=== PATIENT | female | born 1995 | race Caucasian/White ===

== ENCOUNTER 2020-03-21 11:14 | Emergency (ER) | payer SELFPAY ==
[2020-03-21 11:33] VITALS: BP 126/81
--- NOTE | 2020-03-21 12:45 | ER Document Report ---
ED ENT - General Chief Complaint: Sore Throat Stated Complaint: SORE THROAT Time Seen by Provider: 03/21/20 12:21 Notes: CHIEF COMPLAINT: Sore throat for 1 day HPI: 25-year-old female presenting with sore throat and painful swallowing for 1 day. No voice change. No fever. Exposed to someone at work who had a positive strep test last week. Denies other complaints ROS: See HPI - all other systems were reviewed and are otherwise negative Constitutional: no fever Eyes: no drainage, no blurred vision ENT: no runny nose, positive sore throat Cardiovascular: no chest pain Resp: no SOB, no cough GI: no vomiting, no diarrhea, no abdominal pain : no dysuria Integumentary: no rash Allergy: no hives Musculoskeletal: no extremity pain or swelling Neurological: no numbness/tingling, no weakness MEDICATIONS: I agree with the patient medications as charted by the RN. ALLERGIES: I agree with the allergies as charted by the RN. PAST MEDICAL HISTORY/PAST SURGICAL HISTORY: Reviewed and agree as charted by RN. SOCIAL HISTORY: Reviewed and agree as charted by RN. FAMILY HISTORY: No significant familial comorbid conditions directly related to patient complaint EXAM: Reviewed vital signs as charted by RN. CONSTITUTIONAL: Alert and oriented and responds appropriately to questions. Well-appearing; well-nourished HEAD: Normocephalic; atraumatic EYES: PERRL; Conjunctivae clear, sclerae non-icteric ENT: normal nose; no rhinorrhea; moist mucous membranes; mild pharyngeal erythema without exudate, no uvula edema or deviation, no tonsillar hypertrophy, phonation normal NECK: Supple without meningismus; non-tender; no cervical lymphadenopathy, no masses CARD: RRR; no murmurs, no clicks, no rubs, no gallops; symmetric distal pulses RESP: Normal chest excursion without splinting or tachypnea; breath sounds clear and equal bilaterally; no wheezes, no rhonchi, no rales, pulse oximetry 98% on room air not hypoxic ABD/GI: Normal bowel sounds; non-distended; soft, non-tender, no rebound, no guarding; no palpable organomegaly or masses. BACK: The back appears normal and is non-tender to palpation, there is no CVA tenderness EXT: Normal ROM in all joints; no cyanosis, no effusions, no edema SKIN: Normal color for age and race; warm; dry; good turgor NEURO: Moves all extremities equally; Motor and sensory function intact PSYCH: The patient's mood and manner are appropriate. Grooming and personal hygiene are appropriate. MDM: 25-year-old female presenting for concern for strep throat. Strep test sent. - Related Data Allergies/Adverse Reactions: amoxicillin Allergy (Verified 03/21/20 14:19) Penicillins Allergy (Verified 03/21/20 14:19) Past Medical History - Social History Smoking Status: Unknown if Ever Smoked Family History: Reviewed & Not Pertinent Physical Exam - Vital signs Vitals: Temp Pulse Resp BP Pulse Ox 100.2 F 107 H 16 126/81 H 99 03/21/20 11:32 03/21/20 11:32 03/21/20 11:32 03/21/20 11:32 03/21/20 11:32 Course - Re-evaluation Re-evalutation: 03/21/20 14:39 Rapid strep is negative. Will give Decadron for inflammatory changes may be a viral process we will add COVID study discharge person under investigation COVID-19 - Vital Signs Vital signs: Temp Pulse Resp BP Pulse Ox 100.2 F 107 H 16 126/81 H 99 03/21/20 11:32 03/21/20 11:32 03/21/20 11:32 03/21/20 11:32 03/21/20 11:32 Discharge - Discharge Clinical Impression: Sore throat (viral), Person under investigation for COVID-19 Condition: Stable Disposition: HOME, SELF-CARE Instructions: COVID-19 Guidance for Persons Under Investigation, Sore Throat ([facility]) Additional Instructions: 1. medicines as prescribed 2. take Motrin/Tylenol consistently for pain and fever 3. hydrate well at home with fluids/juices 4. recheck with your PCP for further evaluation and treatment, call for appt. 5. return to the ED for any difficulty swallowing or worsening condition 6. warm salt water gargles for throat discomfort 3 times daily 7. You are considered a person under investigation for COVID-19 at this time. Self quarantine at home pending her test results which may take 2 to 5 days. You should hear from someone at the hospital about your test results Forms: Return to Work
[2020-03-21] MEDS ORDERED: DEXAMETHASONE 4 MG TABLET PO ONE (14:38)
== END 2020-03-21 15:35 | disposition home or self-care (01) ==
LOC: ER 11:14
DX: J02.9 Acute pharyngitis, unspecified (principal); R13.10 Dysphagia, unspecified; Z88.0 Allergy status to penicillin; Z20.828 Contact with and (suspected) exposure to other viral communicable diseases
CPT/HCPCS: 99283; 87070; 87880; 87077; J8540